=== PATIENT | male | born 1975 | race Caucasian/White ===

== ENCOUNTER → 2016-10-16 | Day surgery (SDC) | payer OTHER ==
[~2016-10-16] VITALS: Ht 172.7 cm; Wt 86.2 kg
[~2016-10-16] MED LIST: GLIPIZIDE5 M2 PO; HYDROCODON-ACE1 EAC2 PO; METFORMIN HCL500 M3 PO
--- NOTE | 2016-10-16 16:51 | Operative Report ---
Operative/Inv Procedure Report Surgery Date: 10/16/16 Name of Procedure: interstim implant stage 1 and 2 Pre-Operative Diagnosis: urinary retention Post-Operative Diagnosis: same Estimated Blood Loss: less than 50ml Surgeon/[employer]: ZAC RAMOS MD Anesthesia: moderate sedation Implants: interstim implant Drains: none Complications: none Condition: stable Operative Indication: urinary retention Operative/Procedure Note Note: This is an operative dictation on patient Felice Rivera. He is 41-year-old male with a history of urinary retention. He has been self catheterizing intermittently serve all times a day. He did have a percutaneous InterStim trial and he did well with that with improved voiding. However when he was scheduled for the InterStim implant 2 months ago he had very high blood sugars and the case was canceled. He is rescheduled for today. He was given the risks , benefits, and alternatives of the surgery. All questions were answered. He wished to proceed. Patient was taken to the operating room placed on the operating table in the prone position. Was prepped and draped in the standard sterile fashion using ChloraPrep and Ioban. His landmarks were marked out and then fluoroscopy was used to confirm the bony landmarks. They were quite accurate. Stimulation was first tested at the 11 cm and 2 cm lateral to the spine on the right side. He did have sensation at the high buttock region with the ankle rotation. Then this was done again at a higher the position and on the left side as well. Patient had excellent sensation in the bicycle seat area towards the penis. He also had excellent nicole and great toe movement. As a result the wire was placed into the needle and the dilating apparatus was used after incision was cut. Seen to be in good position and this was used to place the lead with the third and fourth lead straddling the inferior portion of the sacral border. The 4 leads were then tested each of them gave excellent response in the nicole reaction great toe as well as the patient's sensation. The lead was left in place and the T dilator was then used to bring the lead to the incision site after incision was made and a pocket created for the battery. Point coagulation was performed for any areas of bleeding. A pocket was created without difficulty. The lead that was brought through to the incision was then cleaned and inserted into the battery and then tightened with the hex wrench. The battery was placed into the pocket and then the battery was checked for functionality and impedance and it was in good working order. The incision was closed with 3-0 Vicryl interrupted sutures in the subcutaneous area followed by subcutaneous layer with 4-0 Monocryl running suture. This was followed by Mastisol, Steri-Strips, and an OpSite. The lead insertion site was closed with Dermabond. Patient was cleaned and dried of the ChloraPrep. Patient tolerated the procedure well. The sponge and needle count were correct at the end of the case. Findings: excellent response to the interstim lead at low levels. Discharge Disposition: Same Day Admissions
--- NOTE | 2016-10-17 08:44 | RADIOLOGY REPORT ---
EXAMINATION: XR SACRUM AND COCCYX CLINICAL INFORMATION: InterStim stage I and 2 for urinary retention in OR. COMPARISON: None TECHNIQUE/FINDINGS: Intraoperative fluoroscopy was provided for a procedure in the OR. 10 fluoroscopic spot films were acquired and are archived in PACS for review. Images demonstrate various stages of electrode placement. Final image demonstrates a stimulation wire projected over the left mid sacrum. FLUOROSCOPY TIME: 29 seconds. IMPRESSION: Administrative dictation for intraoperative fluoroscopy and spot films acquired during a procedure in the OR.
== END ==
LOC: STS 04:33
DX: R33.9 Retention of urine, unspecified (principal); E11.9 Type 2 diabetes mellitus without complications; Z79.84 Long term (current) use of oral hypoglycemic drugs; E78.5 Hyperlipidemia, unspecified; Z87.891 Personal history of nicotine dependence
CPT/HCPCS: 72220; C1767; C1778; C1787; C1894; J0131; J0690; J1885; J2250; J2405